=== PATIENT | male | born 1995 | race American Indian/Alaskan Native ===

== ENCOUNTER 2017-05-17 22:05 | Emergency (ER) | payer OTHER ==
[2017-05-17 23:21] VITALS: BP 134/72
== END 2017-05-17 23:20 | disposition left against medical advice (07) ==
LOC: ED 22:05
DX: M54.9 Dorsalgia, unspecified (principal); M54.2 Cervicalgia; Z53.21 Procedure and treatment not carried out due to patient leaving prior to being seen by health care provider

== ENCOUNTER 2017-08-31 19:47 | Emergency (ER) | payer OTHER ==
[2017-08-31 21:31] LABS: Bacteria,Urine 1+ /HPF (Negative); Bilirubin,Urine NEG (Negative); Blood,Urine NEG (Negative); Color,Urine Yellow (Yellow); Mucus,Urine 1+ /HPF; Urobilinogen,Urine < 2.0 mg/dL (<2.0)
[2017-08-31 21:37] LABS: Hematocrit 49.2 % (35.5-45.6); Hemoglobin 16.8 gm/dl (11.8-15.2); Mean Corpuscular HGB Conc 34 % (32-34); Mean Corpuscular Hemoglobin 32 pg (28-32); Mean Corpuscular Volume 94 fl (84-94); Platelet Count 272 K/mm3 (140-440); Red Blood Count 5.23 M/mm3 (3.65-5.03); Red Cell Distribution Width 14.3 % (13.2-15.2)
[2017-08-31 22:03] LABS: Alanine Aminotransferase 32 units/L (7-56); Albumin 4.2 g/dL (3.9-5); BUN/Creatinine Ratio 8; Blood Urea Nitrogen 9 mg/dL (9-20); Hemolysis Index 41
[2017-08-31 22:35] LABS: Anisocytosis 1+; Basophils % (Manual) 0 % (0.0-1.8); Eosinophils % (Manual) 0 % (0.0-4.3); Platelet Estimate Consistent w Auto; Total Cells Counted 100
[2017-08-31] MEDS ORDERED: ZOFRAN IV ONE (22:57)
[2017-08-31] MEDS ORDERED: NACL 0.9% 1000 ML 1,000 ML IV ONE (22:57)
[2017-08-31] MEDS ORDERED: ZOFRAN ONE (22:59)
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
[2017-08-31] MEDS ORDERED: MORPHINE IV ONE (23:33)
[2017-09-01] MEDS ORDERED: NACL 0.9% 1000 ML 1,000 ML IV ONE (00:44)
--- NOTE | 2017-09-01 01:38 | Cat Scan Report ---
FINAL REPORT EXAM: CT ABDOMEN PELVIS WO CON HISTORY: Back pain and hematuria TECHNIQUE: CT evaluation performed of the abdomen and pelvis without IV or oral contrast administration. Coronal and sagittal imaging also provided for interpretation. PRIORS: None. FINDINGS: The liver, biliary system, pancreas, spleen, adrenal glands, kidneys and bladder have an unremarkable appearance without contrast. Small punctate calcification left hemipelvis appears external to the ureter. The pelvic organs are intact. There is no evidence of mass, pathological calcification, or fluid collection noted within the abdomen or pelvis without contrast. The unopacified portions of the gastrointestinal tract are unremarkable. A retrocecal appendix is partially visualized, no evidence of appendicitis. Moderate volume formed colonic stool. There is no lymphadenopathy. No acute osseous abnormality. IMPRESSION: 1. No noncontrast CT evidence of acute abdominopelvic process. 2. No obstructive uropathy or evidence of appendicitis.
--- NOTE | 2017-09-01 03:17 | Cat Scan Report ---
FINAL REPORT EXAM: CT LUMBAR SPINE W/O CONTRAST HISTORY: Lower back pain. TECHNIQUE: Unenhanced axial CT images of the lumbar spine were obtained, with sagittal and coronal reformatted images. No prior studies are available for comparison. FINDINGS: The vertebral bodies demonstrate normal height and morphology. There is no fracture or spondylolisthesis. The intervertebral disc heights are maintained. There is minimal posterior disc bulging at L5-S1, without focal herniation, central stenosis, or neural foraminal narrowing. The remainder of the lumbar levels are within normal limits. The visualized bilateral sacroiliac joints are normal in appearance. IMPRESSION: 1. No fracture or malalignment. 2. Minimal posterior disc bulging at L5-S1, without resultant central stenosis or neural foraminal narrowing.
[2017-09-01 03:51] VITALS: BP 114/63
== END 2017-09-01 03:50 | disposition home or self-care (01) ==
LOC: ED 19:47
DX: M54.5 Low back pain (principal); R11.2 Nausea with vomiting, unspecified
CPT/HCPCS: 36415; 72131; 74176; 80053; 81001; 85007; 85025; 96361; 96374; 96375; 99284; G0480; J2270; J2405; J7030; 80320